=== PATIENT | female | born 1975 | race Caucasian/White ===

== ENCOUNTER 2020-03-03 06:59 | Emergency (ER) | payer OTHER ==
[~2020-03-03] VITALS: Ht 160 cm; Wt 58.1 kg
[~2020-03-03 06:59] MED LIST: HUMIRA40 MG/0.1 SQ; NORCO 5-325 TA1 EACH PO; TORADOL 10 MG T10 MG PO; ZOFRAN ODT4 MG PO
[2020-03-03] MEDS ORDERED: [UNRECOGNIZED DRUG - OTHER] (07:28)
[2020-03-03 07:36] LABS: ABSOLUTE BASOPHILS 0.1 thou/uL (0.0-0.2); ABSOLUTE LYMPHOCYTES 1.1 thou/uL (0.8-5.3); ABSOLUTE MONOCYTES 0.6 thou/uL (0.0-1.2); ABSOLUTE NEUTROPHILS 6.7 thou/uL (1.6-8.1); BASOPHILS 0.9 %; EOSINOPHILS 0.4 %; HEMATOCRIT 37.9 % (37.0-47.0); HEMOGLOBIN 12.9 gm/dL (12.0-15.0); LYMPHOCYTES 12.6 %; MCH 30.4 pg (26.0-34.0); MCHC 34.1 g/dL (28.0-37.0); MCV 89.2 fL (80.0-100.0); MONOCYTES 6.7 %; MPV 10.9 fl. (7.2-11.1); NUCLEATED RBCS 0 /100WBC; PLATELET COUNT* 189 thou/uL (150-400); POLYS 79.4 %; RBC 4.25 mil/uL (4.20-5.00); RDW-CV 13.3 % (10.5-14.5); WBC 8.4 thou/uL (4.0-11.0)
[2020-03-03 07:44] LABS: CALCIUM 7.7 mg/dL (8.5-10.1); CREATININE 0.7 mg/dL (0.6-1.3); POTASSIUM 3.5 mmol/L (3.5-5.1)
[2020-03-03 07:49] LABS: ALBUMIN 3.8 g/dL (3.4-5.0); TOTAL BILIRUBIN 0.3 mg/dL (<0.1-1.0); TOTAL PROTEIN 7.3 g/dL (6.4-8.2)
[2020-03-03 08:17] LABS: URINE BILIRUBIN NEGATIVE (Negative); URINE BLOOD 3+ (Negative); URINE CLARITY CLEAR; URINE COLOR YELLOW; URINE GLUCOSE-RANDOM NEGATIVE (Negative); URINE KETONES NEGATIVE (Negative); URINE LEUKOCYTES-REFLEX TRACE (Negative); URINE PROTEIN 2+ (Negative); URINE SPECIFIC GRAVITY >= 1.030 (1.005-1.030); URINE UROBILINOGEN 0.2 E.U./dl (0.2-1.0)
[2020-03-03 08:18] LABS: URINE NITRITE-REFLEX POSITIVE (Negative)
[2020-03-03 08:28] LABS: AMORPHOUS URATES Moderate /LPF (None Seen); BACTERIA-REFLEX >30 Many /HPF (None Seen); CASTS None Seen /LPF (None Seen); MUCUS 0-3 Light strn/LPF (None Seen); SQUAMOUS 0-3 Few /LPF (0-3); URINE RBC >20 Many /HPF (0-2); URINE WBC-REFLEX 6-15 Few /HPF (0-5)
[2020-03-03] MEDS ORDERED: CIPROFLOXACIN500 M1 PO (09:33)
[2020-03-03] MEDS ORDERED: NORCO 5-325 TA1 EAC1 PO (09:33)
[2020-03-03] MEDS ORDERED: FLOMAX0.4 MG PO (09:33)
[2020-03-03 09:48] VITALS: BP 102/63
--- NOTE | 2020-03-03 10:58 | EKG ---
[place] [address] ELECTROCARDIOGRAM REPORT Name: CRUZ SALAMANCA Room: [facility]#: [id number] Admission: 03/03/20 Attend Phys: Discharge: 03/03/20 Date of : 75 Date of Service: 03/03/20735 Report #: [id number] THIS REPORT FOR: //name// [facility] ED Test Date: 2020-03-03 Test Time: 07:36:21 Pat Name: CRUZ SALAMANCA Department: Room: Gender: F Director Visual: : 1975 Requested By: Isaias Peña Order Number: [id number] MD: Yaakov Rendon Measurements Intervals [place] Rate: 78 P: 67 CT: 111 QRS: 71 QRSD: 75 T: 50 QT: 379 QTc: 432 Interpretive Statements Sinus rhythm Borderline short CT interval No previous ECG available for comparison Electronically Signed On 03-03-2020 10:56:25 CDT by Yaakov Rendon [email or web address] <ELECTRONICALLY SIGNED> By: Yaakov Rendon MD, [facility] 03/03/20 1056 5 5 Yaakov Rendon MD, FACC /EPI
== END 2020-03-03 09:52 | disposition home or self-care (01) ==
LOC: M.ERS 06:59
PROVIDERS: Family Medicine
DX: N20.0 Calculus of kidney (principal); Z88.0 Allergy status to penicillin

== ENCOUNTER 2021-02-23 10:59 | Emergency (ER) | payer OTHER ==
[~2021-02-23] VITALS: Ht 160 cm; Wt 59.0 kg
[~2021-02-23 10:59] MED LIST changes: +CIPROFLOXACIN500 M1 PO; +FLOMAX0.4 MG PO; +NORCO 5-325 TA1 EAC1 PO; +[UNRECOGNIZED DRUG - OTHER]
[2021-02-23] MEDS ORDERED: TREMFYA100 MG/1 M (11:15)
[2021-02-23 11:34] LABS: ABSOLUTE BASOPHILS 0.1 thou/uL (0.0-0.2); ABSOLUTE EOSINOPHILS 0.1 thou/uL (0.0-0.7); ABSOLUTE LYMPHOCYTES 1.5 thou/uL (0.8-5.3); ABSOLUTE MONOCYTES 0.7 thou/uL (0.0-1.2); ABSOLUTE NEUTROPHILS 3.1 thou/uL (1.6-8.1); BASOPHILS 1.4 %; EOSINOPHILS 1.3 %; HEMATOCRIT 39.9 % (37.0-47.0); HEMOGLOBIN 13.2 gm/dL (12.0-15.0); LYMPHOCYTES 27.6 %; MCHC 33.2 g/dL (28.0-37.0); MCV 90.4 fL (80.0-100.0); MONOCYTES 12.1 %; MPV 10.7 fl. (7.2-11.1); NUCLEATED RBCS 0 /100WBC; PLATELET COUNT* 221 thou/uL (150-400); POLYS 57.6 %; RBC 4.41 mil/uL (4.20-5.00); RDW-CV 12.8 % (10.5-14.5); WBC 5.5 thou/uL (4.0-11.0)
[2021-02-23 11:44] LABS: CALCIUM 8.3 mg/dL (8.5-10.1); CREATININE 0.6 mg/dL (0.6-1.3); POTASSIUM 3.2 mmol/L (3.5-5.1)
[2021-02-23 11:57] LABS: ALBUMIN 3.9 g/dL (3.4-5.0); TOTAL BILIRUBIN 0.3 mg/dL (<0.1-1.0); TOTAL PROTEIN 7.7 g/dL (6.4-8.2)
[2021-02-23 12:01] LABS: URINE BILIRUBIN NEGATIVE (Negative); URINE BLOOD NEGATIVE (Negative); URINE CLARITY CLEAR; URINE COLOR YELLOW; URINE GLUCOSE-RANDOM NEGATIVE (Negative); URINE KETONES NEGATIVE (Negative); URINE LEUKOCYTES-REFLEX NEGATIVE (Negative); URINE NITRITE-REFLEX NEGATIVE (Negative); URINE PROTEIN NEGATIVE (Negative); URINE SPECIFIC GRAVITY <= 1.005 (1.005-1.030); URINE UROBILINOGEN 0.2 E.U./dl (0.2-1.0)
[2021-02-23] MEDS ORDERED: VISTARIL 25 MG25 M1 PO (15:07)
--- NOTE | 2021-02-23 15:19 | EKG ---
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
[2021-02-23 15:20] VITALS: BP 119/68
== END 2021-02-23 15:20 | disposition home or self-care (01) ==
LOC: M.ERS 10:59
PROVIDERS: Physician Assistant
DX: R53.1 Weakness (principal); L40.9 Psoriasis, unspecified; Z88.0 Allergy status to penicillin; Z87.442 Personal history of urinary calculi